=== PATIENT | male | born 1980 | race African-American/Black ===

== ENCOUNTER 2022-08-28 11:43 | Outpatient (CLI) | payer BC, SELFPAY ==
--- NOTE | ~2022-08-28 | CT_ITS ---
CT of the Abdomen and Pelvis: Indication: Abdominal pain Technique: 2.5 mm axial scans were obtained through the abdomen and pelvis following intravenous adm inistration of 100 cc of Omnipaque 350. Dose reduction technique was used on this scan by utilizing a utomated exposure control and iterative reconstruction technique. The dose-length product (DLP) was 1 288.79 mGy-cm. Findings: Scans through the lung bases are unremarkable. The liver, spleen, pancreas, gallbladder, adrenals and kidneys are within normal limits. No evidence of aortic aneurysm. No lymphadenopathy. There is wall thickening and pericolonic inflammatory change at the proximal sigmoid colon. There is a 2.8 cm fluid collection with air-fluid level abutting the sigmoid colon (axial image 128), compatib le with abscess versus contained perforation. Images through the pelvis were performed. Urinary bladder unremarkable. Prostate gland and seminal ve sicles are unremarkable. No ascites. Bilateral L5 pars interarticularis defects are present, without subluxation. Impression: Acute sigmoid diverticulitis, with 2.8 cm abscess versus contained perforation, and prominent surroun ding inflammatory change. Reviewed, dictated and finalized at [facility]. Impression: Acute sigmoid diverticulitis, with 2.8 cm abscess versus contained perforation, and prominent surrounding inflammatory change.
--- NOTE | 2022-08-28 15:38 | PM.IMHP ---
H&P: HPI History of Present Illness Date/Time: 08/28/22 15:45 Chief Complaint: Sigmoid diverticulitis with abscess. [facility]LY [facility] Past Medical History Medical History (Updated 08/28/22 @ 10:49 by Jyothi Trinidad PA-C) Abscess of face Acute pain due to injury Encounter for general adult medical examination without abnormal findings Hyperlipidemia Obesity Seasonal allergies Family History Family History Sibling Diabetes mellitus Other COPD (chronic obstructive pulmonary disease) Social History Social History (Updated 08/28/22 @ 15:45 by Vandana Trivedi PA-C) Social History: Surrogate medical decision maker: Code status: Full code. Smoking status: Light tobacco smoker (cigars) Tobacco type: cigars Second hand tobacco smoke exposure: No Additional smoking assessment comments: Pt smokes 1 cigar a day. Alcohol intake: current Drinks per week: 5 Substance use: never Substance use type: does not use Lack of Transportation: No Lack of Food: Never True Current Housing: I Have Housing Concerned About Future Housing: No Difficulty Paying Gas/Electric Bills: No Difficulty Paying for Meds: No Currently Unemployed: No Education: Decline to Answer Difficulty w/ Childcare or Family Care: No Living arrangements: with family Additional living arrangements comments: Pt and his girlfriend live together. Occupation/Education: occupation Spiritual care concerns: Yes Agree to blood products: No Meds Home Medications and Allergies Home Medications Medication Instructions Recorded Confirmed Type fexofenadine 180 mg tablet 180 mg PO DAILY 10/13/19 08/28/22 History ([facility]y Allergy) azelastine 137 mcg (0.1 %) nasal 137 mcg (0.137 mL) intranasal Q12H 05/24/21 08/28/22 Rx spray aerosol #30 mL fluticasone propionate 50 2 spray intranasal DAILY #11.1 mL 02/23/22 08/28/22 Rx mcg/actuation nasal spray,suspension Allergies Allergy/AdvReac Type Severity Reaction Status Date / Time No Known Allergies Allergy Unverified 08/28/22 10:03 Exam Narrative: General: HEENT: Normocephalic, atraumatic. PERRL, EOMI. Sclera anicteric. Oral mucosa moist. Oropharynx clear. Neck: Supple. Respiratory: Lungs are clear to auscultation bilaterally. Cardiovascular: Regular rate and rhythm with S1-S2. No murmur, rub, or gallop. Gastrointestinal: Abdomen is soft, nontender, and nondistended with positive bowel sounds. No organomegaly. Skin: Warm and dry. No rash or lesions on limited exam. Extremities: No cyanosis, clubbing, or edema. Radial and pedal pulses intact. Neurological: Alert. Cranial nerves 2-12 are grossly intact. Speech is clear. No facial asymmetry. No gross focal deficits to casual conversation. Psychiatric: Pleasant and cooperative with normal mood and affect. Judgment and insight intact. Quality VTE Prophylaxis VTE prophylaxis: mechanical ordered If No VTE Prophylaxis Answer both mechanical and pharmacologic: Reason no pharmacologic proph: medical contraindication (Hold anticoagulation for now as patient may require procedure.)
== END 2022-08-28 11:44 | disposition home or self-care (01) ==
PROVIDERS: PCP Family Medicine; Visit Provider Physician Assistant
DX: R10.32 Left lower quadrant pain (principal); R10.824 Left lower quadrant rebound abdominal tenderness; K57.32 Diverticulitis of large intestine without perforation or abscess without bleeding
CPT/HCPCS: 74177; Q9967

== ENCOUNTER 2022-08-28 19:18 | Observation (INO) | payer BC, SELFPAY ==
--- NOTE | ~2022-08-28 | XR_ITS ---
EXAMINATION: XR chest PICC line DATE: 08/29/2022 12:02 INDICATION: Central line placement. TECHNIQUE: A single frontal view of the chest was obtained. COMPARISON: CT abdomen and pelvis 08/28/2022 FINDINGS: The chest demonstrates clear lungs without pneumonia, pleural effusion, or pneumothorax. Th e heart size is normal. A right upper extremity peripherally inserted central venous catheter (PICC) is seen with tip in the superior vena cava. IMPRESSION: 1. PICC tip in the superior vena cava. Reviewed, dictated and finalized at location A.
[2022-08-28 13:28] VITALS: BP 158/97; PULSE 89; RESP 18; TEMP 36.7; O2SAT 100
[2022-08-28 13:53] LABS: Basophils Absolute Auto 0.1 K/mm3 (0.0-0.1); Basophils Percent Auto 0.6 % (0.2-1.2); Eosinophils Absolute Auto 0.3 K/mm3 (0-0.3); Eosinophils Percent Auto 3.1 % (0-4.4); Hematocrit 43.9 % (42.0-52.0); Hemoglobin 14.2 g/dL (14.0-18.0); Immature Granulocyte Absolute 0.09 K/mm3 (0.00-0.031); Immature Granulocyte Percent A 0.9 % (0-0.5); Lymphocytes Absolute Auto 2.39 K/mm3 (0.9-3.2); Lymphocytes Percent Auto 25.2 % (18.3-44.2); Mean Corpuscular HGB Conc 32.3 g/dl (32-36); Mean Corpuscular Hemoglobin 31.4 pg (26-34); Mean Corpuscular Volume 97.1 fl (80-100); Mean Platelet Volume 9.9 fl (7.4-10.4); Monocytes Absolute Auto 0.8 K/mm3 (0.1-0.6); Monocytes Percent Auto 8.1 % (2.6-8.5); Neutrophils Absolute Auto 5.9 K/mm3 (1.3-6.7); Neutrophils Percent Auto 62.1 % (45.5-73.1); Platelet Count Result 265 k/mm3 (150-375); Red Blood Count 4.52 M/mm3 (4.6-6.20); White Blood Count 9.5 K/mm3 (4.5-10.0)
[2022-08-28 14:01] LABS: Alanine Aminotransferase 33 U/L (6-50); Albumin Level 4.6 g/dL (3.5-5.1); Alkaline Phosphatase 100 U/L (38-126); Anion Gap 10 mmol/L (8-16); Aspartate Amino Transferase 23 U/L (17-59); Blood Urea Nitrogen 15 mg/dL (9-20); Calcium 9.3 mg/dL (8.4-10.2); Carbon Dioxide 25 mmol/L (22-30); Chloride 101 mmol/L (98-107); Estimated CRCL calculation 118 ml/min; Estimated Glomerular Filt Rate > 60; Glucose 107 mg/dL (65-110); Lipase 48 U/L (23-300); Potassium 4.2 mmol/L (3.4-5.0); Sodium 136 mmol/L (137-145)
[2022-08-28 15:06] VITALS: BP 128/84; PULSE 82; RESP 18; O2SAT 98
[2022-08-28 15:07] LABS: Appearance Urine Clear (Clear); Bacteria Urine None Seen /hpf; Bilirubin Urine Negative (Negative); Blood Urine Negative (Negative); Color Urine Yellow (Yellow); Glucose Urine UA Negative (Negative); Ketones Urine Negative (Negative); Leukocyte Esterase Ur Negative LEU/UL (Negative); Nitrate Urine Negative (Negative); Non Pathogenic Casts 0-2; Protein Urine Trace mg/dL (Negative); RBC Urine 0-2 /hpf (0-2); Squamous Epithelial Cell Urine None seen /hpf (Few); Urobilinogen Urine 0.2 mg/dL (<2.0); WBC Urine 0-5 /hpf; pH Urine 5.5 (5.0-9.0)
[2022-08-28 15:37] VITALS: BMI 32.9
[2022-08-28 15:46] LABS: Add Urine Microscopic? YES; Specific Grav Ur 1.097 (1.001-1.035)
[2022-08-28 16:00] VITALS: BP 116/78; PULSE 67; RESP 20; TEMP 36; O2SAT 100
--- NOTE | 2022-08-28 16:30 | PM.IMHP ---
H&P: HPI History of Present Illness Date/Time: 08/28/22 16:30 Chief Complaint: Sigmoid diverticulitis. Narrative: This is a pleasant 42-year-old male with no significant medical history who is being directly admitted to the medical floor from Dr. Muro's office after an outpatient CT scan of the abdomen and pelvis showed acute sigmoid diverticulitis with a 2.8 cm abscess versus contained perforation. Patient provides the following history. He developed a cramping pain in the left lower quadrant a couple of hours after eating barbecue for dinner on night. The pain was pretty severe but did not radiate. It seems to be worse when standing and lying supine. He has not noticed that is worse with eating or drinking though he has had a decrease in oral intake presumably due to the pain. He thought that he was constipated so he took milk of magnesia and he admits to having several loose stools on Sunday. He felt a bit better thereafter as well. He of krueger tired to reportedly unremarkable bowel movements. He has not had fever or chills but endorses feeling warm the 1st couple of nights. He has been taking Aleve at home which seems to help the pain somewhat. He saw his doctor today, had lab work and CT scan as above, and he is now being admitted for IV antibiotics and surgery consultation. At the time my evaluation he is resting comfortably and in fact reports that he is hungry. He has no known history of diverticulitis however he had a similar episode to this several years ago but not a severe. Review of Systems Review of Systems: Twelve systems were reviewed and are negative except for as per HPI. [facility] Past Medical History Medical History (Updated 08/28/22 @ 22:25 by Vandana Trivedi PA-C) Hyperlipidemia Obesity Seasonal allergies Surgical History Surgical History No history of previous surgery Family History Family History Sibling Diabetes mellitus Other COPD (chronic obstructive pulmonary disease) Social History Social History (Updated 08/28/22 @ 22:22 by Vandana Trivedi PA-C) Social History: Surrogate medical decision maker: Carmina Easley, significant other. Code status: Full code. Smoking status: Light tobacco smoker (cigars) Tobacco type: cigars Second hand tobacco smoke exposure: No Additional smoking assessment comments: Pt smokes 1 cigar a day. Alcohol intake: current Drinks per week: 5 Substance use: never Substance use type: does not use Lack of Transportation: No Lack of Food: Never True Current Housing: I Have Housing Concerned About Future Housing: No Difficulty Paying Gas/Electric Bills: No Difficulty Paying for Meds: No Currently Unemployed: No Education: Decline to Answer Difficulty w/ Childcare or Family Care: No Living arrangements: with family Additional living arrangements comments: Pt and his girlfriend live together in [place]. Occupation/Education: occupation Additional occupation/education comments: Works for [employer]. Spiritual care concerns: Yes Agree to blood products: No Meds Home Medications and Allergies Home Medications Medication Instructions Recorded Confirmed Type fexofenadine 180 mg tablet 180 mg PO DAILY 10/13/19 08/28/22 History (Kasey Allergy) azelastine 137 mcg (0.1 %) nasal 137 mcg (0.137 mL) intranasal Q12H 05/24/21 08/28/22 Rx spray aerosol #30 mL fluticasone propionate 50 2 spray intranasal DAILY #11.1 mL 02/23/22 08/28/22 Rx mcg/actuation nasal spray,suspension Allergies Allergy/AdvReac Type Severity Reaction Status Date / Time No Known Allergies Allergy Unverified 08/28/22 10:03 Vital Signs Vital Signs - 24 hr 08/28/22 13:28 08/28/22 15:06 Temperature 98.0 F Pulse Rate 89 82 Respiratory Rate 18 18 Blood Pressure 158/97 H 128/84 Pulse Oximetry 100
[2022-08-28 21:57] VITALS: BP 120/75; PULSE 81; RESP 15; TEMP 36.3; O2SAT 100
[2022-08-29 06:00] VITALS: BP 128/90; PULSE 66; RESP 14; TEMP 36.4; O2SAT 100
[2022-08-29 06:40] LABS: Hematocrit 40.3 % (42.0-52.0); Hemoglobin 13.1 g/dL (14.0-18.0); Mean Corpuscular HGB Conc 32.5 g/dl (32-36); Mean Corpuscular Volume 95.5 fl (80-100); Platelet Count Result 276 k/mm3 (150-375); Red Blood Count 4.22 M/mm3 (4.6-6.20); Red Cell Distribution Width 12.9 % (11.5-14.5)
[2022-08-29 06:43] LABS: Alanine Aminotransferase 28 U/L (6-50); Albumin Level 4.4 g/dL (3.5-5.1); Alkaline Phosphatase 89 U/L (38-126); Anion Gap 8 mmol/L (8-16); Aspartate Amino Transferase 21 U/L (17-59); Bilirubin,Total 0.8 mg/dL (0.2-1.3); Blood Urea Nitrogen 15 mg/dL (9-20); Calcium 9.3 mg/dL (8.4-10.2); Carbon Dioxide 27 mmol/L (22-30); Chloride 100 mmol/L (98-107); Estimated CRCL calculation 118 ml/min; Estimated Glomerular Filt Rate > 60; Glucose 118 mg/dL (65-110); Magnesium 2.4 mg/dL (1.6-2.3); Potassium 4.1 mmol/L (3.4-5.0); Sodium 135 mmol/L (137-145)
--- NOTE | 2022-08-29 10:16 | PM.IMPN ---
Progress Note: A&P Assessment and Plan (1) Abscess of sigmoid colon due to diverticulitis: Code(s): K57.20 - Diverticulitis of large intestine with perforation and abscess without bleeding Status: Acute Assessment and Plan: The patient is being directly admitted from his doctor's office after CT of the abdomen and pelvis showed acute sigmoid diverticulitis with evidence of abscess or walled-off perforation.? Continue IV Zosyn per antibiotic stewardship recommendations.? Clear liquids diet.? General Surgery consulted and appreciate recommendations.? Analgesics and antiemetics available as needed. Time Spent With Patient Time with patient: 15 - 25 minutes Subjective Date/time seen: 08/29/22 10:16 Interval history: He denies abdominal pain, nausea, vomiting, diarrhea, chest pain, SOB, fevers or rigors. He drank a bit of Ensure just a few moments ago and feels like he is doing well. Nursing reports difficulty obtaining a peripheral IV for antibiotics and PICC like was placed today. Review of Systems Review of Systems: All systems reviewed & are unremarkable except as noted in HPI and below Exam Narrative: General: Well-developed, nontoxic-appearing male sitting up in bed. HEENT: Normocephalic. PERRL, EOMI. Sclera anicteric. Moist mucous membranes. Neck: Supple. Respiratory: Lungs are clear to auscultation bilaterally. RR regular and unlabored. Cardiovascular: Regular rate and rhythm with S1-S2. No murmurs. Gastrointestinal: Abdomen is soft and nondistended with positive bowel sounds. Minimally tender to palpation the left lower quadrant. No guarding. Skin: Warm and dry. Normal for ethnicity. Extremities: No cyanosis, clubbing, or edema. Radial and pedal pulses intact. Grossly normal ROM. Neurological: Alert, oriented x3. Cranial nerves 2-12 are grossly intact. No gross focal deficits to casual conversation. Speech clear. Psychiatric: Pleasant and cooperative with normal mood and affect. Objective Data Vital Signs Vital Signs: Vital Signs - 24 hr 08/28/22 13:28 08/28/22 15:06 08/28/22 16:00 Temperature 98.0 F 96.8 F L Pulse Rate 89 82 67 Respiratory Rate 18 18 20 Blood Pressure 158/97 H 128/84 116/78 Pulse Oximetry 100 98 100 Oxygen Delivery Room Air 08/28/22 21:57 08/29/22 06:00 Temperature 97.3 F L 97.5 F L Pulse Rate 81 66 Respiratory Rate 15 14 Blood Pressure 120/75 128/90 Pulse Oximetry 100 100 Oxygen Delivery Intake/Output Intake/Output: Intake & Output 08/26/22 08/27/22 08/28/22 08/29/22 23:59 23:59 23:59 23:59 Output Total 0 Balance 0 Meds/Results Medications: Active Medications Generic Name Dose Route Start Last Admin Trade Name Freq PRN Reason Stop Dose Admin Acetaminophen 650 mg 08/28/22 19:18 Acetaminophen 325 Mg Tablet PO Q4H PRN Mild Pain (1-3) or Fever Hydrocodone Bitart/Acetaminophen 1 tab 08/28/22 19:18 Hydrocodone/Acetaminophen (*Crx) 5-325 Mg Tablet PO Q4H PRN Moderate Pain (4-6) Piperacillin/Tazobactam/Dextrose 3.375 gm in 50 mls @ 100 mls/hr 08/28/22 19:20 Zosyn 3.375 Gm/Ns 50 Ml IVPB Q6HR JACQUELINE Morphine Sulfate 2 mg 08/28/22 19:18 Morphine Sulfate (*Crx) 2 Mg/Ml Inj IV PUSH Q4H PRN Pain Rated 7-10 Labs Labs: Laboratory Results - last 24 hr 08/28/22 08/28/22 08/28/22 13:38 13:38 13:55 WBC 9.5 RBC 4.52 L Hgb 14.2 Hct 43.9 MCV 97.1 MCH 31.4 MCHC 32.3 RDW 13.0 Plt Count 265 MPV 9.9 Immature Gran % (Auto) 0.9 H Neut % (Auto) 62.1 Lymph % (Auto) 25.2 [place] % (Auto) 8.1 Eos % (Auto) 3.1 Baso % (Auto) 0.6 Lymph # (Auto) 2.39 [place] # (Auto) 0.8 H Eos # (Auto) 0.3 Baso # (Auto) 0.1 Abs Immat Gran (auto) 0.09 H Absolute Neuts (auto) 5.9 Absolute Nucleated RBC 0.0 Nucleated RBC % 0.0 Sodium 136 L Potassium 4.2 Chloride 101 Carbon Dioxide 25 Anion Gap 1
--- NOTE | 2022-08-29 11:03 | PM.CNGS ---
Assessment and Plan Assessment and plan (1) Abscess of sigmoid colon due to diverticulitis: Code(s): K57.20 - Diverticulitis of large intestine with perforation and abscess without bleeding Status: Acute Assessment and Plan: This is his first episode of diverticulitis. CT evidence of acute sigmoid diverticulitis with a small 2.8 cm adjacent abscess. We would recommend to continue with conservative treatment for now with broad-spectrum IV antibiotics, IV fluids, and analgesics as needed. He is not having much abdominal pain this morning and does not have any peritoneal signs on exam. Hopefully his PICC line will be placed soon in order to start the IV Zosyn. Will start clear liquids this morning. Continue to monitor with serial abdominal exams and labs. (2) Cigar smoker: Code(s): F17.290 - Nicotine dependence, other tobacco product, uncomplicated Status: Acute (3) BMI 33.0-33.9,adult: Code(s): Z68.33 - Body mass index [BMI] 33.0-33.9, adult Status: Acute Plan I have discussed the patient's case and plan of care with Dr. Ray. Thank you for allowing us to see the patient in consultation and we will continue to follow along with you. History of Present Illness Consult details Consult date: 08/29/22 Reason for consult: other (Acute sigmoid diverticulitis with abscess) Requesting physician: Vandana Trivedi PA-C Narrative: This is a 42-year-old man who was directly admitted yesterday for acute sigmoid diverticulitis with abscess. He reports an onset of left lower quadrant abdominal pain starting 5 days ago. This pain has been mild in nature. It does seem to radiate across his lower abdomen when it becomes more severe. His pain is aggravated by movement and bending. He denies any nausea, vomiting, fever, or chills. Due to his persistent pain, he presented to his PCP yesterday for evaluation. They ordered an outpatient CT scan of the abdomen and pelvis. This showed acute sigmoid diverticulitis with a 2.8 cm fluid and gas collection consistent with abscess versus contained perforation. He was then directly admitted to the hospitalist service. Our service has been consulted for the diverticulitis with abscess. He was made NPO and orders were placed for IV Zosyn, IV fluids, and analgesics. Labs have shown a normal WBC count. Unfortunately, he has had multiple failed IV attempts and currently does not have any IV access. The hospitalist has ordered a PICC line to be placed today so he can start receiving the IV medications. The patient is seen on the medical floor. He is reportedly comfortable and has not required any pain medication. He has been afebrile since admission. This is his first episode of diverticulitis. He denies any previous abdominal surgeries or colonoscopies. Review of Systems Review of Systems: All systems reviewed & are unremarkable except as noted in HPI and below Constitutional: Constitutional: Reports no additional constitutional complaints, Denies chills, Denies fatigue and Denies fever(s) Eyes: Eyes: Reports no additional eye complaints ENT: Reports system reviewed and no additional complaints, except as documented and Denies dizziness Cardiovascular: Cardiovascular: Reports no additional cardiovascular complaints, Denies chest pain and Denies leg edema Respiratory: Respiratory: Reports no additional respiratory complaints, Denies cough and Denies dyspnea Gastrointestinal: Gastrointestinal: Reports as per HPI, Reports no additional gastrointestinal complaints, Reports abdominal pain, Denies melena, Denies bloating, Denies hematochezia, Denies constipation, Denies diarrhea, Denies nausea and Denies vomiting Genitourinary: Genitourinary: Reports no additional male genitourinary complaints and Denies dysuria Musculoskeletal: Musculoskeletal: Reports no additional musculoskeletal complaints, Denies abnormal gait and Denies joint swelling Integumentary/Breasts: Skin/Noreen
[2022-08-29] MEDS: SODIUM CHLORIDE 0.9% IV 1,000 ML 75 ML IV CONT (12:53)
[2022-08-29] MEDS: PIPERACILLN/TAZ 3.375GM/NS50ML 3.375 GM/50 ML BAG IVPB ×4 (12:57→23:03)
[2022-08-29] MEDS: CENTRAL LINE FLUSH 10 ML IV PUSH ×2 (13:50)
[2022-08-29 14:00] VITALS: BP 123/91; PULSE 70; RESP 19; TEMP 35.8; O2SAT 100
[2022-08-29 19:41] VITALS: BP 116/80; PULSE 78; RESP 18; TEMP 36.5; O2SAT 99
[2022-08-29] MEDS: ACETAMINOPHEN 325 MG TABLET 650 MG PO (20:36)
[2022-08-30] MEDS: SODIUM CHLORIDE 0.9% IV 1,000 ML 75 ML IV CONT (03:35)
[2022-08-30 03:48] VITALS: BP 122/76; PULSE 72; RESP 18; TEMP 36.4; O2SAT 98
[2022-08-30] MEDS: HYDROcodone/acetaminophen (*CRX) 5-325 MG TABLET 1 TAB PO ×2 (04:01→22:02)
[2022-08-30 05:21] LABS: Hematocrit 35.9 % (42.0-52.0); Hemoglobin 11.9 g/dL (14.0-18.0); Mean Corpuscular HGB Conc 33.1 g/dl (32-36); Mean Corpuscular Hemoglobin 31.1 pg (26-34); Mean Corpuscular Volume 93.7 fl (80-100); Mean Platelet Volume 9.9 fl (7.4-10.4); Platelet Count Result 250 k/mm3 (150-375); Red Blood Count 3.83 M/mm3 (4.6-6.20); Red Cell Distribution Width 12.7 % (11.5-14.5); White Blood Count 9.3 K/mm3 (4.5-10.0)
[2022-08-30 05:27] LABS: Sodium 135 mmol/L (137-145)
[2022-08-30 05:32] LABS: Alanine Aminotransferase 25 U/L (6-50); Alkaline Phosphatase 77 U/L (38-126); Anion Gap 4 mmol/L (8-16); Aspartate Amino Transferase 22 U/L (17-59); Bilirubin,Total 0.7 mg/dL (0.2-1.3); Blood Urea Nitrogen 13 mg/dL (9-20); Calcium 8.7 mg/dL (8.4-10.2); Carbon Dioxide 30 mmol/L (22-30); Chloride 101 mmol/L (98-107); Estimated CRCL calculation 119 ml/min; Estimated Glomerular Filt Rate > 60; Glucose 117 mg/dL (65-110); Potassium 4.1 mmol/L (3.4-5.0)
[2022-08-30] MEDS: CENTRAL LINE FLUSH 10 ML IV PUSH ×2 (05:36→14:07)
[2022-08-30] MEDS: PIPERACILLN/TAZ 3.375GM/NS50ML 3.375 GM/50 ML BAG IVPB ×4 (05:38→23:35)
--- NOTE | 2022-08-30 11:35 | PM.PNGS ---
Progress Note: A&P Assessment and Plan (1) Abscess of sigmoid colon due to diverticulitis: Code(s): K57.20 - Diverticulitis of large intestine with perforation and abscess without bleeding Status: Acute Assessment and Plan: Clinically improving. WBC remains normal. Less tender today. Abdominal exam benign. Continue IV antibiotics. Will advance to full liquids and advance as tolerated to low fiber. Consult dietitian for education on diet. Plan I have discussed the patient's case and plan of care with Dr. Ray. Subjective Subjective Date/Time Seen: 08/30/22 11:35 Patient reports: no new complaints, feels better, pain is less, tolerating liquids well, flatus, no bowel movement and afebrile Interval history: Patient seen this morning. Reports feeling a little better today. He did require [place] for some abdominal pain around 4:00 a.m., but denies any abdominal pain at this time. No nausea or vomiting. Tolerating clear liquids. He is passing flatus, but no BM for 2 days. No acute events overnight. Review of Systems Review of Systems: ROS unchanged Exam Const: General: comfortable and no acute distress Orientation/consciousness: patient oriented x3 GI: Inspection: non-distended GI Palp: Yes Soft to palpation, Yes Tenderness to palpation present (GI) (Very mild TTP in LLQ, improved), No Guarding due to palpation present (GI), No Rigid due to palpation and No Rebound tenderness present Auscultation: normal bowel sounds Objective Data Vital Signs Vital Signs: Vital Signs - 24 hr 08/29/22 14:00 08/29/22 19:41 08/30/22 03:48 Temperature 96.5 F L 97.7 F 97.6 F Pulse Rate 70 78 72 Respiratory Rate 19 18 18 Blood Pressure 123/91 H 116/80 122/76 Pulse Oximetry 100 99 98 Intake/Output Intake/Output: Intake & Output 08/27/22 08/28/22 08/29/22 08/30/22 23:59 23:59 23:59 23:59 Intake Total 1630 1510 Output Total 0 Balance 1630 1510 Meds/Results Medications: Active Medications Generic Name Dose Route Start Last Admin Trade Name Freq PRN Reason Stop Dose Admin Acetaminophen 650 mg 08/28/22 19:18 08/29/22 20:36 Acetaminophen 325 Mg Tablet PO 650 mg Q4H PRN Administration Mild Pain (1-3) or Fever Hydrocodone Bitart/Acetaminophen 1 tab 08/28/22 19:18 08/30/22 04:01 Hydrocodone/Acetaminophen (*Crx) 5-325 Mg Tablet PO 1 tab Q4H PRN Administration Moderate Pain (4-6) Sodium Chloride 1,000 mls @ 75 mls/hr 08/29/22 10:15 08/30/22 03:35 Normal Saline Iv IV CONT 75 mls/hr .[id number] JACQUELINE Administration Piperacillin/Tazobactam/Dextrose 3.375 gm in 50 mls @ 100 mls/hr 08/29/22 12:00 08/30/22 06:05 Zosyn 3.375 Gm/Ns 50 Ml IVPB Infused Q6HR JACQUELINE Infusion Morphine Sulfate 2 mg 08/28/22 19:18 Morphine Sulfate (*Crx) 2 Mg/Ml Inj IV PUSH Q4H PRN Pain Rated 7-10 Sodium Chloride 10 ml 08/29/22 14:00 08/30/22 05:36 Central Line Flush IV PUSH 10 ml Q8HR JACQUELINE Administration Sodium Chloride 20 ml 08/29/22 12:32 Central Line Flush IV PUSH PRN PRN after blood draws Radiology Results: ITS Impressions Chest X-Ray 08/29/22 12:04 IMPRESSION: 1. PICC tip in the superior vena cava. Labs Labs: Laboratory Results - last 24 hr 08/30/22 08/30/22 Unknown Unknown WBC 9.3 RBC 3.83 L Hgb 11.9 L Hct 35.9 L MCV 93.7 MCH 31.1 MCHC 33.1 RDW 12.7 Plt Count 250 MPV 9.9 Sodium 135 L Potassium 4.1 Chloride 101 Carbon Dioxide 30 Anion Gap 4 L BUN 13 Creatinine 1.00 Estim Creat Clear Calc 119 Estimated GFR > 60 Glucose 117 H Calcium 8.7 Total Bilirubin 0.7 AST 22 ALT 25 Alkaline Phosphatase 77 Total Protein 8.0 Albumin 4.0
[2022-08-30 14:00] VITALS: BP 115/85; PULSE 70; RESP 16; TEMP 36.1; O2SAT 99
--- NOTE | 2022-08-30 16:11 | PM.IMPN ---
Progress Note: A&P Assessment and Plan (1) Abscess of sigmoid colon due to diverticulitis: Code(s): K57.20 - Diverticulitis of large intestine with perforation and abscess without bleeding Status: Acute Assessment and Plan: The patient is being directly admitted from his doctor's office after CT of the abdomen and pelvis showed acute sigmoid diverticulitis with evidence of abscess or walled-off perforation.? Continue IV Zosyn per antibiotic stewardship recommendations.? advance diet as tolerated. General Surgery consulted and appreciate recommendations.? Analgesics and antiemetics available as needed. Hopefully plan for transition to oral antibiotics soon. Will discuss with General surgery. Subjective Date/time seen: 08/30/22 16:11 Interval history: patient doing well and feeling much better. Patient has minimal abdominal pain in the left lower quadrant although it is buggy ladle tender to palpation. Patient doing well with no new complaints. Review of Systems Review of Systems: All systems reviewed & are unremarkable except as noted in HPI and below Exam Narrative: GENERAL: Comfortable, no acute distress HENMT: moist mucous membranes EYES: EOM intact b/l NECK: no lymphadenopathy RESPIRATORY: clear to auscultation CARDIO: RRR GI: soft, Mild left lower quadrant tenderness, bowel sounds present SKIN: no rashes EXTREMITIES: no edema, redness or tenderness Objective Data Vital Signs Vital Signs: Vital Signs - 24 hr 08/29/22 19:41 08/30/22 03:48 08/30/22 08:00 Temperature 97.7 F 97.6 F Pulse Rate 78 72 Respiratory Rate 18 18 Blood Pressure 116/80 122/76 Pulse Oximetry 99 98 Oxygen Delivery Room Air 08/30/22 14:00 Temperature 97 F L Pulse Rate 70 Respiratory Rate 16 Blood Pressure 115/85 Pulse Oximetry 99 Oxygen Delivery Intake/Output Intake/Output: Intake & Output 08/27/22 08/28/22 08/29/22 08/30/22 23:59 23:59 23:59 23:59 Intake Total 1630 1800 Output Total 0 Balance 1630 1800 Meds/Results Medications: Active Medications Generic Name Dose Route Start Last Admin Trade Name Freq PRN Reason Stop Dose Admin Acetaminophen 650 mg 08/28/22 19:18 08/29/22 20:36 Acetaminophen 325 Mg Tablet PO 650 mg Q4H PRN Administration Mild Pain (1-3) or Fever Hydrocodone Bitart/Acetaminophen 1 tab 08/28/22 19:18 08/30/22 04:01 Hydrocodone/Acetaminophen (*Crx) 5-325 Mg Tablet PO 1 tab Q4H PRN Administration Moderate Pain (4-6) Sodium Chloride 1,000 mls @ 50 mls/hr 08/29/22 10:15 08/30/22 15:07 Normal Saline Iv IV CONT Not Given .Q20H JACQUELINE Piperacillin/Tazobactam/Dextrose 3.375 gm in 50 mls @ 100 mls/hr 08/29/22 12:00 08/30/22 12:59 Zosyn 3.375 Gm/Ns 50 Ml IVPB Infused Q6HR JACQUELINE Infusion Morphine Sulfate 2 mg 08/28/22 19:18 Morphine Sulfate (*Crx) 2 Mg/Ml Inj IV PUSH Q4H PRN Pain Rated 7-10 Sodium Chloride 10 ml 08/29/22 14:00 08/30/22 14:07 Central Line Flush IV PUSH 10 ml Q8HR JACQUELINE Administration Sodium Chloride 20 ml 08/29/22 12:32 Central Line Flush IV PUSH PRN PRN after blood draws Radiology Results: ITS Impressions Chest X-Ray 08/29/22 12:04 IMPRESSION: 1. PICC tip in the superior vena cava. Labs Labs: Laboratory Results - last 24 hr 08/30/22 08/30/22 Unknown Unknown WBC 9.3 RBC 3.83 L Hgb 11.9 L Hct 35.9 L MCV 93.7 MCH 31.1 MCHC 33.1 RDW 12.7 Plt Count 250 MPV 9.9 Sodium 135 L Potassium 4.1 Chloride 101 Carbon Dioxide 30 Anion Gap 4 L BUN 13 Creatinine 1.00 Estim Creat Clear Calc 119 Estimated GFR > 60 Glucose 117 H Calcium 8.7 Total Bilirubin 0.7 AST 22 ALT 25 Alkaline Phosphatase 77 Total Protein 8.0 Albumin 4.0
[2022-08-30] MEDS: SODIUM CHLORIDE 0.9% IV 1,000 ML 50 ML IV CONT (20:12)
[2022-08-30 22:00] VITALS: BP 132/89; PULSE 66; RESP 15; TEMP 36.3; O2SAT 100
[2022-08-31 05:54] VITALS: BP 124/81; PULSE 67; RESP 15; TEMP 36.5; O2SAT 99
[2022-08-31] MEDS: PIPERACILLN/TAZ 3.375GM/NS50ML 3.375 GM/50 ML BAG IVPB (06:01)
[2022-08-31] MEDS: CENTRAL LINE FLUSH 10 ML IV PUSH ×2 (06:03)
[2022-08-31 06:04] LABS: Basophils Absolute Auto 0.1 K/mm3 (0.0-0.1); Basophils Percent Auto 0.6 % (0.2-1.2); Eosinophils Absolute Auto 0.4 K/mm3 (0-0.3); Eosinophils Percent Auto 4.2 % (0-4.4); Hematocrit 37.4 % (42.0-52.0); Hemoglobin 12.2 g/dL (14.0-18.0); Immature Granulocyte Absolute 0.15 K/mm3 (0.00-0.031); Immature Granulocyte Percent A 1.8 % (0-0.5); Lymphocytes Absolute Auto 2.57 K/mm3 (0.9-3.2); Mean Corpuscular HGB Conc 32.6 g/dl (32-36); Mean Corpuscular Hemoglobin 31.5 pg (26-34); Mean Corpuscular Volume 96.6 fl (80-100); Mean Platelet Volume 9.7 fl (7.4-10.4); Monocytes Absolute Auto 0.6 K/mm3 (0.1-0.6); Monocytes Percent Auto 7.4 % (2.6-8.5); Neutrophils Absolute Auto 4.8 K/mm3 (1.3-6.7); Platelet Count Result 269 k/mm3 (150-375); Red Blood Count 3.87 M/mm3 (4.6-6.20); Red Cell Distribution Width 12.7 % (11.5-14.5); White Blood Count 8.6 K/mm3 (4.5-10.0)
[2022-08-31 06:35] LABS: Alanine Aminotransferase 24 U/L (6-50); Albumin Level 3.9 g/dL (3.5-5.1); Alkaline Phosphatase 77 U/L (38-126); Anion Gap 8 mmol/L (8-16); Aspartate Amino Transferase 33 U/L (17-59); Bilirubin,Total 0.6 mg/dL (0.2-1.3); Blood Urea Nitrogen 13 mg/dL (9-20); Calcium 8.6 mg/dL (8.4-10.2); Carbon Dioxide 27 mmol/L (22-30); Chloride 101 mmol/L (98-107); Estimated CRCL calculation 109 ml/min; Estimated Glomerular Filt Rate > 60; Glucose 106 mg/dL (65-110); Potassium 4.1 mmol/L (3.4-5.0); Sodium 136 mmol/L (137-145)
--- NOTE | 2022-08-31 10:11 | PM.DS ---
DS: Admitting Diagnosis Discharge Date 08/31/22 Admitting Diagnosis Diverticulitis with abscess DS: Discharge Diagnosis Discharge Diagnosis (1) Abscess of sigmoid colon due to diverticulitis: Code(s): K57.20 - Diverticulitis of large intestine with perforation and abscess without bleeding Status: Acute Assessment and Plan: The patient is being directly admitted from his doctor's office after CT of the abdomen and pelvis showed acute sigmoid diverticulitis with evidence of abscess or walled-off perforation.? Continue IV Zosyn per antibiotic stewardship recommendations.? advance diet as tolerated. General Surgery consulted and appreciate recommendations.? Analgesics and antiemetics available as needed. Transition to oral antibiotics and discharge home. DS: Summary Hospital Course Reason for hospitalization: Diverticulitis with abscess Hospital Course: This is a 42-year-old male with insignificant past medical history of the present to the ED on 08/28/2022 with chief complaint of left lower abdominal pain. Patient was recently seen as an outpatient at primary clinic where he had a CT scan of his abdomen and pelvis performed showing acute sigmoid diverticulitis with a 2.8 cm abscess. Once results of the CT or discovered he was prompted to go to the ED. prior to presenting to the ED patient had been having left lower quadrant pain the started about 4 days prior. Patient did not endorse fever or chills but he had been taking Aleve at home. Patient admitted for IV antibiotics and was started on Zosyn. Surgery consulted and did not believe patient required surgery at that time. Patient's abscess had evidence of a walled-off perforation not requiring surgery. Patient did have PICC line placed for him to receive his IV Zosyn. Patient improved with antibiotic therapy and left lower quadrant pain improved. Patient's diet advanced as tolerated and on day of discharge she advanced to a low-fiber diet and doing well with this. Surgery has discharge patient to complete antibiotic therapy as an outpatient for a total of 10 days Time Spent with Patient Time attestation: Total time spent providing and/or coordinating discharge services: Exam Narrative: GENERAL: Comfortable, no acute distress HENMT: moist mucous membranes EYES: EOM intact b/l NECK: no lymphadenopathy RESPIRATORY: clear to auscultation CARDIO: RRR GI: soft, Mild left lower quadrant tenderness, bowel sounds present SKIN: no rashes EXTREMITIES: no edema, redness or tenderness DS: Data Data Completed and Pending Labs on day of discharge: Labs from last 24 hours 08/31/22 08/31/22 05:43 05:43 WBC 8.6 RBC 3.87 L Hgb 12.2 L Hct 37.4 L MCV 96.6 MCH 31.5 MCHC 32.6 RDW 12.7 Plt Count 269 MPV 9.7 Immature Gran % (Auto) 1.8 H Neut % (Auto) 56.0 Lymph % (Auto) 30.0 [place] % (Auto) 7.4 Eos % (Auto) 4.2 Baso % (Auto) 0.6 Lymph # (Auto) 2.57 [place] # (Auto) 0.6 Eos # (Auto) 0.4 H Baso # (Auto) 0.1 Abs Immat Gran (auto) 0.15 H Absolute Neuts (auto) 4.8 Absolute Nucleated RBC 0.0 Nucleated RBC % 0.0 Sodium 136 L Potassium 4.1 Chloride 101 Carbon Dioxide 27 Anion Gap 8 BUN 13 Creatinine 1.10 Estim Creat Clear Calc 109 Estimated GFR > 60 Glucose 106 Calcium 8.6 Total Bilirubin 0.6 AST 33 ALT 24 Alkaline Phosphatase 77 Total Protein 7.0 Albumin 3.9 Discharge Plan Discharge Attending physician on discharge: Alex Chambers Consulting providers: Kimberly Ray Discharging Clinician: Sujey Hendricks Patient Disposition: Home, Self-Care Activity: as tolerated Diet: regular Discharge Instructions: Medications: Levaquin 750 mg daily for 10 days. Metronidazole 500 mg every 8 hrs for 10 days. Take all medications as prescribed even if feeling better Wear a mask in public, and stay away from large crowds Diet: Brat diet, which
--- NOTE | 2022-08-31 12:47 | PM.PNGS ---
Progress Note: A&P Assessment and Plan (1) Abscess of sigmoid colon due to diverticulitis: Code(s): K57.20 - Diverticulitis of large intestine with perforation and abscess without bleeding Status: Acute Assessment and Plan: exam benign, mehul diet, +bowel fxn, ok to dc home c low fat diet and po abx, f/u 2 wks Subjective Subjective Date/Time Seen: 08/31/22 12:47 feels good, mehul diet, +bowel fxn, abd pain largely resolved Review of Systems Review of Systems: All systems reviewed & are unremarkable except as noted in HPI and below Exam Const: General: cooperative, comfortable and no acute distress Resp: Auscultation: clear to auscultation bilaterally Cardio: Rate: regular rate Rhythm: regular rhythm GI: Inspection: normal to inspection GI Palp: Yes abdominal tenderness, Yes Soft to palpation, Yes Tenderness to palpation present (GI), No Guarding due to palpation present (GI) and No Rigid due to palpation Objective Data Vital Signs Vital Signs: Vital Signs - 24 hr 08/30/22 14:00 08/30/22 22:00 08/31/22 05:54 Temperature 36.1 C L 36.3 C L 36.5 C Pulse Rate 70 66 67 Respiratory Rate 16 15 15 Blood Pressure 115/85 132/89 124/81 Pulse Oximetry 99 100 99 Oxygen Delivery 08/31/22 08:00 Temperature Pulse Rate Respiratory Rate Blood Pressure Pulse Oximetry Oxygen Delivery Room Air Intake/Output Intake/Output: Intake & Output 08/28/22 08/29/22 08/30/22 08/31/22 23:59 23:59 23:59 23:59 Intake Total 1630 3210 150 Output Total 0 Balance 1630 3210 150 Meds/Results Medications: Active Medications Generic Name Dose Route Start Last Admin Trade Name Freq PRN Reason Stop Dose Admin Acetaminophen 650 mg 08/28/22 19:18 08/29/22 20:36 Acetaminophen 325 Mg Tablet PO 650 mg Q4H PRN Administration Mild Pain (1-3) or Fever Hydrocodone Bitart/Acetaminophen 1 tab 08/28/22 19:18 08/30/22 22:02 Hydrocodone/Acetaminophen (*Crx) 5-325 Mg Tablet PO 1 tab Q4H PRN Administration Moderate Pain (4-6) Sodium Chloride 1,000 mls @ 50 mls/hr 08/29/22 10:15 08/30/22 20:12 Normal Saline Iv IV CONT 50 mls/hr .Q20H JACQUELINE Administration Piperacillin/Tazobactam/Dextrose 3.375 gm in 50 mls @ 100 mls/hr 08/29/22 12:00 08/31/22 12:02 Zosyn 3.375 Gm/Ns 50 Ml IVPB Not Given Q6HR JACQUELINE Morphine Sulfate 2 mg 08/28/22 19:18 Morphine Sulfate (*Crx) 2 Mg/Ml Inj IV PUSH Q4H PRN Pain Rated 7-10 Sodium Chloride 10 ml 08/29/22 14:00 08/31/22 06:03 Central Line Flush IV PUSH 10 ml Q8HR JACQUELINE Administration Sodium Chloride 20 ml 08/29/22 12:32 Central Line Flush IV PUSH PRN PRN after blood draws Radiology Results: ITS Impressions Chest X-Ray 08/29/22 12:04 IMPRESSION: 1. PICC tip in the superior vena cava. Labs Labs: Laboratory Results - last 24 hr 08/31/22 08/31/22 05:43 05:43 WBC 8.6 RBC 3.87 L Hgb 12.2 L Hct 37.4 L MCV 96.6 MCH 31.5 MCHC 32.6 RDW 12.7 Plt Count 269 MPV 9.7 Immature Gran % (Auto) 1.8 H Neut % (Auto) 56.0 Lymph % (Auto) 30.0 [place] % (Auto) 7.4 Eos % (Auto) 4.2 Baso % (Auto) 0.6 Lymph # (Auto) 2.57 [place] # (Auto) 0.6 Eos # (Auto) 0.4 H Baso # (Auto) 0.1 Abs Immat Gran (auto) 0.15 H Absolute Neuts (auto) 4.8 Absolute Nucleated RBC 0.0 Nucleated RBC % 0.0 Sodium 136 L Potassium 4.1 Chloride 101 Carbon Dioxide 27 Anion Gap 8 BUN 13 Creatinine 1.10 Estim Creat Clear Calc 109 Estimated GFR > 60 Glucose 106 Calcium 8.6 Total Bilirubin 0.6 AST 33 ALT 24 Alkaline Phosphatase 77 Total Protein 7.0 Albumin 3.9
[2022-08-31 14:00] VITALS: BP 112/72; PULSE 85; RESP 14; TEMP 36.1; O2SAT 100
== END 2022-08-31 14:40 | disposition home or self-care (01) ==
PROVIDERS: Emergency Medicine; Internal Medicine Critical Care Medicine; Nurse Practitioner Family; Physician Assistant; Admitting Provider Student in an Organized Health Care Education/Training Program; PCP Family Medicine; Visit Provider Internal Medicine
DX: K57.20 Diverticulitis of large intestine with perforation and abscess without bleeding (principal); E78.5 Hyperlipidemia, unspecified; E66.9 Obesity, unspecified; Z68.34 Body mass index [BMI] 34.0-34.9, adult; F17.290 Nicotine dependence, other tobacco product, uncomplicated; F10.90 Alcohol use, unspecified, uncomplicated; Z79.51 Long term (current) use of inhaled steroids; Z79.899 Other long term (current) drug therapy
CPT/HCPCS: 36415; 36569; 80053; 81001; 83690; 83735; 85025; 85027; 96361; 96365; 96366; A9270; C1751; G0378; G0379; J2543; J7030

== ENCOUNTER 2024-11-19 01:33 | Day surgery (SDC) | payer BC, SELFPAY ==
--- NOTE | 2024-11-13 11:24 | PC.NURSE ---
11/13/24 Multiples messages left on patient and sig. other vm and patient portal with no response regarding procedure sched. on 11/19/24. Message left today that if we do not hear from him by 3pm 11/14/24 we will need to cancel him and he will need to call office to reschedule.
[2024-11-13 11:28] VITALS: BMI 32.1
[2024-11-19 10:15] VITALS: BP 123/79; PULSE 66; RESP 16; TEMP 36.3; O2SAT 100; BMI 30.4
--- NOTE | 2024-11-19 10:35 | P.PNAN_ITS ---
Anes - Initial Pre Proc Eval Procedure: Operation Date: 11/19/24 11:30 Proposed Procedures p Screening Colonoscopy - David Goel MD Date/Time: 11/19/24 10:35 Surgeon: David Goel MD Pre Op Diagnosis: Encounter for screening for malignant neoplasm of Patient Data Age: 44 Gender: M Height: 1.91 m Weight: 110.4 kg Last Vital Signs Temp 97.4 F L 11/19/24 10:15 Pulse 66 11/19/24 10:15 Resp 16 11/19/24 10:15 BP 123/79 11/19/24 10:15 Pulse Ox 100 11/19/24 10:15 O2 Del Method Room Air 11/19/24 10:15 Allergies Allergy/AdvReac Type Severity Reaction Status Date / Time No Known Allergies Allergy Verified 11/19/24 10:20 Home Medications ?Medication ?Instructions ?Recorded ?Confirmed ?Type fexofenadine 180 mg tablet 180 mg PO DAILY 10/13/19 11/19/24 History (Kasey Allergy) fluticasone propionate 50 1 spray intranasal DAILY PRN 11/13/24 11/19/24 History mcg/actuation nasal allergy symptoms spray,suspension (24 Hour Allergy Relief) Patient hx anesthesia problems: none Family hx anesthesia problems: none Results Review: All pre-operative results and documents have been reviewed as part of the pre- operative evaluation. [facility] Past Medical History Medical History History of diverticular abscess of colon Acute posthemorrhagic anemia Left lower quadrant rebound abdominal tenderness Sciatica of left side Hyperlipidemia Obesity Seasonal allergies Surgical History Surgical History No history of previous surgery Family History Family History Sibling Diabetes mellitus Other COPD (chronic obstructive pulmonary disease) Social History Social History Social History: Surrogate medical decision maker: Carmina Easley, significant other. Code status: Full code. Years smoked: 3 Smoking status: Smoker, status unknown (cigars) Tobacco type: cigars Second hand tobacco smoke exposure: No Additional smoking assessment comments: Pt smokes 4 cigars a week Alcohol intake: current Drinks per week: 5 Alcohol use details: drinks Substance use: never Substance use type: does not use Do You Feel Safe in your Home?: Yes Lack of Transportation: No Lack of Food: Never True Current Housing: I Have Housing Concerned About Future Housing: No Difficulty Paying Gas/Electric Bills: No Difficulty Paying for Meds: No Currently Unemployed: No Education: Decline to Answer Difficulty w/ Childcare or Family Care: No Living arrangements: with family Occupation/Education: occupation Additional occupation/education comments: Works for [employer]. Gender identity (if verbalized by the patient): Male Sexual Orientation (if Verbalized by the Patient): Straight or Heterosexual Spiritual care concerns: No Agree to blood products: No Anes - Eval Final PreProcedure Day of Procedure 11/19/24 10:35 Patient weight: obese Heart: regular rate and rhythm Lungs: clear to auscultation Airway: Mallampati scale class II Neurological: alert and oriented Last oral intake: >/= 8 hours ASA classification: II Emergent: no Anesthetic plan: proceed Anesthesia type and monitoring: general GIVS and standard monitoring Results Review: All pre-operative results and documents have been reviewed as part of the pre- operative evaluation. Informed Consent: The patient's anesthetic plan and its attendant risks and benefits were discussed with the patient/family/POA. Questions were solicited and answers provided to the satisfaction of the patient/family/POA.
[2024-11-19] MEDS: LACTATED RINGERS 1,000 ML 150 ML IV CONT (10:38)
--- NOTE | 2024-11-19 10:42 | P.HP_ITS ---
History of Present Illness History of Present Illness Consent: Risks, benefits, and alternatives have been discussed and questions answered. Patient agrees to proceed with procedure. Chief complaint: Encounter for screening for malignant neoplasm of Narrative: Dale Blackburn is a 44 year old male here for first screening colonoscopy Review of Systems Review of Systems: All systems reviewed & are unremarkable except as noted in HPI and below PMFSH Past Medical History Medical History (Updated 11/19/24 @ 10:43 by David Goel MD) Colon cancer screening History of diverticular abscess of colon Acute posthemorrhagic anemia Left lower quadrant rebound abdominal tenderness Sciatica of left side Hyperlipidemia Obesity Seasonal allergies Surgical History Surgical History No history of previous surgery Family History Family History Sibling Diabetes mellitus Other COPD (chronic obstructive pulmonary disease) Social History Social History Social History: Surrogate medical decision maker: Carmina Easley, significant other. Code status: Full code. Years smoked: 3 Smoking status: Smoker, status unknown (cigars) Tobacco type: cigars Second hand tobacco smoke exposure: No Additional smoking assessment comments: Pt smokes 4 cigars a week Alcohol intake: current Drinks per week: 5 Alcohol use details: drinks Substance use: never Substance use type: does not use Do You Feel Safe in your Home?: Yes Lack of Transportation: No Lack of Food: Never True Current Housing: I Have Housing Concerned About Future Housing: No Difficulty Paying Gas/Electric Bills: No Difficulty Paying for Meds: No Currently Unemployed: No Education: Decline to Answer Difficulty w/ Childcare or Family Care: No Living arrangements: with family Occupation/Education: occupation Additional occupation/education comments: Works for [employer]. Gender identity (if verbalized by the patient): Male Sexual Orientation (if Verbalized by the Patient): Straight or Heterosexual Spiritual care concerns: No Agree to blood products: No Meds Home Medications and Allergies Home Medications ?Medication ?Instructions ?Recorded ?Confirmed ?Type fexofenadine 180 mg tablet 180 mg PO DAILY 10/13/19 11/19/24 History (Kasey Allergy) fluticasone propionate 50 1 spray intranasal DAILY PRN 11/13/24 11/19/24 History mcg/actuation nasal allergy symptoms spray,suspension (24 Hour Allergy Relief) Allergies Allergy/AdvReac Type Severity Reaction Status Date / Time No Known Allergies Allergy Verified 11/19/24 10:20 Vital Signs Vital Signs - 24 hr 11/19/24 10:15 Temperature 97.4 F L Pulse Rate 66 Respiratory Rate 16 Blood Pressure 123/79 Pulse Oximetry 100 Oxygen Delivery Room Air Exam Const: General: comfortable and no acute distress HENMT: Face/Nose/Sinus: Normal nares present Eyes: General: appearance normal, both eyes and all related structures Neck: Neck: no JVD Resp: Auscultation: clear to auscultation bilaterally Cardio: Rate: regular rate Rhythm: regular rhythm GI: Inspection: non-distended GI Palp: Yes Soft to palpation Skin: General skin exam: normal color Neuro: Speech: normal speech Extrem: General: normal to inspection Psych: Mental Status: mental status grossly normal Assessment and Plan Assessment and plan (1) Colon cancer screening: Code(s): Z12.11 - Encounter for screening for malignant neoplasm of colon Status: Acute Assessment and Plan: colonoscopy
--- NOTE | 2024-11-19 11:00 | S_PTH ---
PATIENT: Dale Blackburn LOC: [facility]#:[id number] AGE/SX: 44/M ROOM: RE11/19/[address]: David Goel MD : 1980 BED: DIS: 11/19/2024 SPEC #: [id number] RECD: 11/19/24 11:23 STATUS: TOMMIE REQ #: [id number] JAZZMINE: 11/19/24 11:[address]: David Goel DEPT: [facility] Surgical RECD BY: Nata Gallegos ENTERED: 11/19/24 11:23 SP TYPE: Surgical OTHR DR: Osbaldo Posey MD Tissues: A - Colon Polypectomy Procedures: Hematoxylin and Eosin Stain Gross and Microscopic Level 4
[2024-11-19 11:05] VITALS: BP 165/94; PULSE 71; RESP 21; O2SAT 100
[2024-11-19 11:15] VITALS: BP 104/84; PULSE 65; RESP 19; O2SAT 100
[2024-11-19 11:25] VITALS: BP 116/79; PULSE 55; RESP 21; O2SAT 100
== END 2024-11-19 11:34 | disposition home or self-care (01) ==
PROVIDERS: PCP Family Medicine; Visit Provider Internal Medicine Gastroenterology
PROC: 0DJD8ZZ Inspection of Lower Intestinal Tract, Via Natural or Artificial Opening Endoscopic (ICD-10-PCS; CPT 45378; principal; 2024-11-19 11:30)
DX: Z12.11 Encounter for screening for malignant neoplasm of colon (principal); K51.40 Inflammatory polyps of colon without complications; K57.30 Diverticulosis of large intestine without perforation or abscess without bleeding; E78.5 Hyperlipidemia, unspecified; D62 Acute posthemorrhagic anemia; F17.290 Nicotine dependence, other tobacco product, uncomplicated; E66.9 Obesity, unspecified; Z68.30 Body mass index [BMI] 30.0-30.9, adult; Z87.19 Personal history of other diseases of the digestive system
CPT/HCPCS: 45385; 88305; J2003; J2704; J7120